=== PATIENT | male | born 1950 | race Caucasian/White ===

== ENCOUNTER 2021-10-24 08:15 | Outpatient (CLI) | payer MEDICARE, SELFPAY ==
[2021-10-24 18:43] LABS: Basophils Percent Auto 0.5 % (0.2-1.2); Eosinophils Absolute Auto 0.1 K/mm3 (0-0.3); Eosinophils Percent Auto 1.3 % (0-4.4); Hematocrit 43.3 % (42.0-52.0); Hemoglobin 13.9 g/dL (14.0-18.0); Immature Granulocyte Absolute 0.02 K/mm3 (0.00-0.031); Immature Granulocyte Percent A 0.5 % (0-0.5); Lymphocytes Absolute Auto 0.93 K/mm3 (0.9-3.2); Mean Corpuscular HGB Conc 32.1 g/dl (32-36); Mean Corpuscular Hemoglobin 31.7 pg (26-34); Mean Corpuscular Volume 98.9 fl (80-100); Mean Platelet Volume 10.5 fl (7.4-10.4); Monocytes Absolute Auto 0.5 K/mm3 (0.1-0.6); Monocytes Percent Auto 13.4 % (2.6-8.5); Neutrophils Absolute Auto 2.3 K/mm3 (1.3-6.7); Neutrophils Percent Auto 60.3 % (45.5-73.1); Platelet Count Result 181 k/mm3 (150-375); Red Blood Count 4.38 M/mm3 (4.6-6.20); Red Cell Distribution Width 13.2 % (11.5-14.5); White Blood Count 3.9 K/mm3 (4.5-10.0)
[2021-10-24 18:51] LABS: Alanine Aminotransferase 19 U/L (6-50); Albumin Level 4.5 g/dL (3.5-5.1); Alkaline Phosphatase 45 U/L (38-126); Anion Gap 7 mmol/L (8-16); Aspartate Amino Transferase 34 U/L (17-59); Bilirubin,Total 0.9 mg/dL (0.2-1.3); Blood Urea Nitrogen 20 mg/dL (9-20); Calcium 9.3 mg/dL (8.4-10.2); Carbon Dioxide 28 mmol/L (22-30); Chloride 104 mmol/L (98-107); Cholesterol 214 mg/dL (0-200); Estimated Glomerular Filt Rate > 60; Glucose 93 mg/dL (65-110); HDL Direct 97 mg/dL; LDL Cholesterol Direct 83 mg/dL; Potassium 4.8 mmol/L (3.4-5.0); Sodium 139 mmol/L (137-145); Triglycerides 37 mg/dL (<150)
[2021-10-24 19:09] LABS: Prostate Specific Antigen 2.3 ng/mL (< OR = 4.0)
== END 2021-10-24 08:16 | disposition home or self-care (01) ==
LOC: ANHGOSHLAB 08:23
PROVIDERS: PCP Family Medicine; Visit Provider Physician Assistant
DX: Z12.5 Encounter for screening for malignant neoplasm of prostate (principal); I10 Essential (primary) hypertension; E78.49 Other hyperlipidemia
CPT/HCPCS: 36415; 80053; 80061; 84153; 84443; 85025; G0103

== ENCOUNTER → 2021-12-05 10:48 | Outpatient (CLI) | payer MEDICARE, SELFPAY ==
--- NOTE | ~2021-12-05 | XR_ITS ---
XR knee LT min 4V 12/05/2021 10:59 Indication: Left knee pain Procedure: 4 views left knee Comparison: No prior studies for comparison. Findings: There is mild tricompartment osteoarthritis of the left knee. No fracture or traumatic alina lignment. No significant joint effusion. No foreign bodies. Impression: 1: Mild osteoarthritis of the left knee. Reviewed, dictated and finalized at location B. Impression: 1: Mild osteoarthritis of the left knee.
== END ==
PROVIDERS: PCP Physician Assistant; Visit Provider Physician Assistant
DX: M25.562 Pain in left knee (principal); M16.11 Unilateral primary osteoarthritis, right hip
CPT/HCPCS: 73564

== ENCOUNTER 2022-09-24 12:06 | Emergency (ER) | payer MEDICARE, SELFPAY ==
--- NOTE | ~2022-09-24 | XR_ITS ---
XR shoulder RT min 2V DATE: 09/24/2022 12:53 INDICATION: Right shoulder pain TECHNIQUE: 4 views COMPARISON: None FINDINGS: There is osteopenia. Diffuse idiopathic skeletal hyperostosis of the thoracic spine. Moderate peridiscal spurring of the glenoid process of the scapula. There is mild spurring at the rig ht acromioclavicular joint. No fracture, dislocation, periosteal reaction or bone destruction or abnormal soft tissue calcificati on of the right shoulder. IMPRESSION: Osteoarthritic changes Diffuse idiopathic skeletal hyperostosis of the thoracic spine Reviewed, dictated and finalized at location L.
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
[2022-09-24 12:19] VITALS: BP 122/86; PULSE 65; RESP 16; TEMP 36.4; O2SAT 98
[2022-09-24] MEDS: TETANUS,DIPHTHERIA,AC PERTUSSIS ADULT (0.5 ML) BOOSTRIX IM (12:33)
== END 2022-09-24 13:38 | disposition home or self-care (01) ==
PROVIDERS: Emergency Provider Nurse Practitioner; PCP Family Medicine
DX: S50.311A Abrasion of right elbow, initial encounter (principal); S80.211A Abrasion, right knee, initial encounter; V17.4XXA Pedal cycle driver injured in collision with fixed or stationary object in traffic accident, initial encounter; Y93.55 Activity, bike riding; S70.01XA Contusion of right hip, initial encounter; S50.01XA Contusion of right elbow, initial encounter; S40.011A Contusion of right shoulder, initial encounter; Z23 Encounter for immunization; N40.0 Benign prostatic hyperplasia without lower urinary tract symptoms; E78.49 Other hyperlipidemia; I10 Essential (primary) hypertension; G47.33 Obstructive sleep apnea (adult) (pediatric)
CPT/HCPCS: 73030; 73080; 73502; 90471; 90715; 99214; G0463

== ENCOUNTER 2022-11-05 08:10 | Outpatient (CLI) | payer MEDICARE, SELFPAY ==
[2022-11-05 11:16] LABS: Anion Gap 6 mmol/L (8-16); Blood Urea Nitrogen 17 mg/dL (9-20); Calcium 9.1 mg/dL (8.4-10.2); Carbon Dioxide 31 mmol/L (22-30); Chloride 104 mmol/L (98-107); Cholesterol 211 mg/dL (0-200); Estimated Glomerular Filt Rate > 60; Glucose 86 mg/dL (65-110); HDL Direct 90 mg/dL; Potassium 4.9 mmol/L (3.4-5.0); Sodium 141 mmol/L (137-145); Triglycerides 64 mg/dL (<150)
[2022-11-05 11:17] LABS: Basophils Percent Auto 0.6 % (0.2-1.2); Eosinophils Absolute Auto 0.1 K/mm3 (0-0.3); Eosinophils Percent Auto 2.1 % (0-4.4); Hematocrit 42.1 % (42.0-52.0); Hemoglobin 13.8 g/dL (14.0-18.0); Immature Granulocyte Absolute 0.01 K/mm3 (0.00-0.031); Immature Granulocyte Percent A 0.3 % (0-0.5); Lymphocytes Absolute Auto 1.03 K/mm3 (0.9-3.2); Lymphocytes Percent Auto 30.9 % (18.3-44.2); Mean Corpuscular HGB Conc 32.8 g/dl (32-36); Mean Corpuscular Hemoglobin 32.7 pg (26-34); Mean Corpuscular Volume 99.8 fl (80-100); Mean Platelet Volume 10.2 fl (7.4-10.4); Monocytes Absolute Auto 0.5 K/mm3 (0.1-0.6); Monocytes Percent Auto 14.7 % (2.6-8.5); Neutrophils Absolute Auto 1.7 K/mm3 (1.3-6.7); Neutrophils Percent Auto 51.4 % (45.5-73.1); Platelet Count Result 201 k/mm3 (150-375); Red Blood Count 4.22 M/mm3 (4.6-6.20); Red Cell Distribution Width 13.4 % (11.5-14.5); White Blood Count 3.3 K/mm3 (4.5-10.0)
[2022-11-05 11:28] LABS: LDL Cholesterol Direct 91 mg/dL
[2022-11-05 11:46] LABS: Prostate Specific Antigen 2.5 ng/mL (< OR = 4.0)
== END 2022-11-05 08:11 | disposition home or self-care (01) ==
PROVIDERS: PCP Family Medicine; Visit Provider Nurse Practitioner Family
DX: E78.49 Other hyperlipidemia (principal); I10 Essential (primary) hypertension; M48.10 Ankylosing hyperostosis [Forestier], site unspecified; N40.0 Benign prostatic hyperplasia without lower urinary tract symptoms; Z12.5 Encounter for screening for malignant neoplasm of prostate
CPT/HCPCS: 36415; 80048; 80061; 84153; 84443; 85025; G0103

== ENCOUNTER 2023-04-21 12:49 | Outpatient (CLI) | payer MEDICARE, SELFPAY | END 2023-04-21 12:50 | disposition home or self-care (01) | LOC: ANHAUDASC 12:51 | PROVIDERS: PCP Family Medicine; Visit Provider Nurse Practitioner Family | DX: H90.3 Sensorineural hearing loss, bilateral (principal) | CPT/HCPCS: 92557; 92567 ==

== ENCOUNTER 2023-11-18 07:54 | Outpatient (CLI) | payer MEDICARE, SELFPAY ==
[2023-11-18 18:47] LABS: Basophils Percent Auto 0.5 % (0.2-1.2); Eosinophils Absolute Auto 0.1 K/mm3 (0-0.3); Hemoglobin 13.7 g/dL (14.0-18.0); Immature Granulocyte Absolute 0.02 K/mm3 (0.00-0.031); Immature Granulocyte Percent A 0.5 % (0-0.5); Lymphocytes Absolute Auto 1.22 K/mm3 (0.9-3.2); Lymphocytes Percent Auto 30.8 % (18.3-44.2); Mean Corpuscular HGB Conc 31.9 g/dl (32-36); Mean Corpuscular Hemoglobin 30.8 pg (26-34); Mean Corpuscular Volume 96.6 fl (80-100); Monocytes Absolute Auto 0.5 K/mm3 (0.1-0.6); Monocytes Percent Auto 13.1 % (2.6-8.5); Neutrophils Absolute Auto 2.1 K/mm3 (1.3-6.7); Neutrophils Percent Auto 52.1 % (45.5-73.1); Platelet Count Result 212 k/mm3 (150-375); Red Blood Count 4.45 M/mm3 (4.6-6.20); Red Cell Distribution Width 13.7 % (11.5-14.5)
[2023-11-18 19:11] LABS: Alanine Aminotransferase 22 U/L (6-50); Albumin Level 4.3 g/dL (3.5-5.1); Alkaline Phosphatase 53 U/L (38-126); Anion Gap 9 mmol/L (4-12); Aspartate Amino Transferase 49 U/L (17-59); Bilirubin,Total 1.4 mg/dL (0.2-1.3); Blood Urea Nitrogen 20 mg/dL (9-20); Carbon Dioxide 28 mmol/L (22-30); Chloride 103 mmol/L (98-107); Cholesterol 143 mg/dL (0-200); Estimated Glomerular Filt Rate > 60; Glucose 79 mg/dL (65-110); HDL Direct 78 mg/dL; Potassium 4.3 mmol/L (3.4-5.0); Sodium 140 mmol/L (137-145); Triglycerides 39 mg/dL (<150)
[2023-11-18 19:21] LABS: LDL Cholesterol Direct 46 mg/dL
[2023-11-18 19:38] LABS: Prostate Specific Antigen 2.3 ng/mL (< OR = 4.0)
[2023-11-18 21:39] LABS: Free T4 Free Thyroxine Reflex 1.02 ng/dL (0.78-2.19)
[2023-11-18 22:24] LABS: Total Triiodothyronine (T3) 1.24 NG/ML (0.97-1.69)
== END 2023-11-18 07:55 | disposition home or self-care (01) ==
LOC: ANHGOSHLAB 07:56
PROVIDERS: PCP Family Medicine; Visit Provider Nurse Practitioner Family
DX: N40.0 Benign prostatic hyperplasia without lower urinary tract symptoms (principal); I10 Essential (primary) hypertension; E78.49 Other hyperlipidemia; M48.10 Ankylosing hyperostosis [Forestier], site unspecified; Z12.5 Encounter for screening for malignant neoplasm of prostate
CPT/HCPCS: 36415; 80053; 80061; 84153; 84439; 84443; 84480; 85025; G0103

== ENCOUNTER 2024-10-27 00:20 | Day surgery (SDC) | payer MEDICARE, SELFPAY ==
[2024-10-13 10:12] VITALS: BMI 32.1
[2024-10-27 09:04] VITALS: BP 129/90; PULSE 71; RESP 18; TEMP 36.6; O2SAT 97; BMI 31.8
[2024-10-27] MEDS: LACTATED RINGERS 1,000 ML 150 ML IV CONT (09:11)
--- NOTE | 2024-10-27 09:23 | WPDANESEPPF ---
Anes - Initial Pre Proc Eval Procedure: Operation Date: 10/27/24 10:30 Proposed Procedures p Colonoscopy - Lorenzo Roberson MD Date/Time: 10/27/24 09:23 Surgeon: Lorenzo Roberson MD Pre Op Diagnosis: Other fecal abnormalities Patient Data Age: 73 Gender: M Height: 1.8 m Weight: 103.6 kg Last Vital Signs Temp 36.6 C 10/27/24 09:04 Pulse 71 10/27/24 09:04 Resp 18 10/27/24 09:04 BP 129/90 10/27/24 09:04 Pulse Ox 97 10/27/24 09:04 O2 Del Method Room Air 10/27/24 09:04 Allergies Allergy/AdvReac Type Severity Reaction Status Date / Time No Known Allergies Allergy Verified 10/27/24 09:02 Home Medications ?Medication ?Instructions ?Recorded ?Confirmed ?Type multivitamin 1 tablet PO DAILY 12/31/21 10/27/24 History fluticasone propionate 50 1 spray intranasal DAILY #16 grams 01/19/22 10/27/24 Rx mcg/actuation nasal spray,suspension fluticasone propionate 50 1 spray intranasal DAILY 08/23/23 10/27/24 History mcg/actuation nasal spray,suspension (Flonase Allergy Relief) ibuprofen 200 mg capsule 200 mg PO Q6H PRN pain 08/23/23 10/13/24 History loratadine 5 mg/5 mL oral solution 5 ml PO ONCE 08/23/23 10/27/24 History (Children's Claritin) atorvastatin 10 mg tablet 10 mg PO DAILY #30 tabs 05/16/24 10/27/24 Rx Patient hx anesthesia problems: none Family hx anesthesia problems: none Results Review: All pre-operative results and documents have been reviewed as part of the pre-operative evaluation. [facility] Past Medical History Medical History Hearing loss Surgical aftercare, genitourinary system (11/2019) s/p Urolift procedure HTN (hypertension), benign Familial combined hyperlipidemia JUNE on CPAP BPH (benign prostatic hyperplasia) Family History Family History Father Cancer Mother Hypertension Heart problem Thyroid disorder Social History Social History Social History: Caffeine-Coffee Smoking status: Never smoker Tobacco type: pipe Alcohol intake: current Alcohol use details: occasionally Substance use: never Living arrangements: with family Occupation/Education: retired Gender identity (if verbalized by the patient): Male Anes - Eval Final PreProcedure Day of Procedure 10/27/24 09:23 Patient weight: obese Heart: regular rate and rhythm Lungs: clear to auscultation Airway: Mallampati scale class II Neurological: alert and oriented Last oral intake: >/= 8 hours ASA classification: III Emergent: no Anesthetic plan: proceed Anesthesia type and monitoring: general GIVS and standard monitoring Results Review: All pre-operative results and documents have been reviewed as part of the pre-operative evaluation. Informed Consent: The patient's anesthetic plan and its attendant risks and benefits were discussed with the patient/family/POA. Questions were solicited and answers provided to the satisfaction of the patient/family/POA.
--- NOTE | 2024-10-27 10:03 | PM.HPGS ---
History of Present Illness History of Present Illness Consent: Risks, benefits, and alternatives have been discussed and questions answered. Patient agrees to proceed with procedure. Chief complaint: Other fecal abnormalities Narrative: Dayday Novak is a 73 year old male with cologuard +, had colonoscopy more than 7 years ago Review of Systems Review of Systems: All systems reviewed & are unremarkable except as noted in HPI and below PMFSH Past Medical History Medical History Hearing loss Surgical aftercare, genitourinary system (11/2019) s/p Urolift procedure HTN (hypertension), benign Familial combined hyperlipidemia JUNE on CPAP BPH (benign prostatic hyperplasia) Family History Family History Father Cancer Mother Hypertension Heart problem Thyroid disorder Social History Social History Social History: Caffeine-Coffee Smoking status: Never smoker Tobacco type: pipe Alcohol intake: current Alcohol use details: occasionally Substance use: never Living arrangements: with family Occupation/Education: retired Gender identity (if verbalized by the patient): Male Meds Home Medications and Allergies Home Medications ?Medication ?Instructions ?Recorded ?Confirmed ?Type multivitamin 1 tablet PO DAILY 12/31/21 10/27/24 History fluticasone propionate 50 1 spray intranasal DAILY #16 grams 01/19/22 10/27/24 Rx mcg/actuation nasal spray,suspension fluticasone propionate 50 1 spray intranasal DAILY 08/23/23 10/27/24 History mcg/actuation nasal spray,suspension (Flonase Allergy Relief) ibuprofen 200 mg capsule 200 mg PO Q6H PRN pain 08/23/23 10/13/24 History loratadine 5 mg/5 mL oral solution 5 ml PO ONCE 08/23/23 10/27/24 History (Children's Claritin) atorvastatin 10 mg tablet 10 mg PO DAILY #30 tabs 05/16/24 10/27/24 Rx Allergies Allergy/AdvReac Type Severity Reaction Status Date / Time No Known Allergies Allergy Verified 10/27/24 09:02 Vital Signs Vital Signs - 24 hr 10/27/24 09:04 Temperature 97.8 F Pulse Rate 71 Respiratory Rate 18 Blood Pressure 129/90 Pulse Oximetry 97 Oxygen Delivery Room Air Exam Const: General: comfortable and no acute distress HENMT: Face/Nose/Sinus: Normal nares present Eyes: General: appearance normal, both eyes and all related structures Neck: Neck: no JVD Resp: Auscultation: clear to auscultation bilaterally Cardio: Rate: regular rate Rhythm: regular rhythm GI: Inspection: non-distended GI Palp: Yes Soft to palpation Skin: General skin exam: normal color Neuro: Speech: normal speech Extrem: General: normal to inspection Psych: Mental Status: mental status grossly normal Assessment and Plan Assessment and plan (1) Positive FIT (fecal immunochemical test): Code(s): R19.5 - Other fecal abnormalities Status: Acute Assessment and Plan: colonoscopy
[2024-10-27 10:17] VITALS: BP 111/64; PULSE 70; RESP 20; O2SAT 95
--- NOTE | 2024-10-27 10:18 | S_PTH ---
PATIENT: Dayday Novak LOC: [facility]#:[id number] AGE/SX: 73/M ROOM: RE10/27/[address]: Lorenzo Roberson MD : 1950 BED: DIS: 10/27/2024 SPEC #: [id number] RECD: 10/27/24 11:14 STATUS: EMILY REQ #: [id number] STEVE: 10/27/24 10:[address]: Lorenzo Roberson DEPT: [facility] Surgical RECD BY: Liz Cruz ENTERED: 10/27/24 11:14 SP TYPE: Surgical OTHR DR: Dalton Black MD Tissues: A - Colon Polypectomy Procedures: Hematoxylin and Eosin Stain Gross and Microscopic Level 4
[2024-10-27 10:27] VITALS: BP 114/81; PULSE 72; RESP 16; O2SAT 97
[2024-10-27 10:37] VITALS: BP 132/77; PULSE 64; RESP 20; O2SAT 100
== END 2024-10-27 10:44 | disposition home or self-care (01) ==
PROVIDERS: PCP Family Medicine; Referring Provider Nurse Practitioner Family; Visit Provider Internal Medicine Gastroenterology
PROC: 0DJD8ZZ Inspection of Lower Intestinal Tract, Via Natural or Artificial Opening Endoscopic (ICD-10-PCS; CPT 45378; principal; 2024-10-27 10:30)
DX: R19.5 Other fecal abnormalities (principal); D12.2 Benign neoplasm of ascending colon; K64.8 Other hemorrhoids; K57.30 Diverticulosis of large intestine without perforation or abscess without bleeding; I10 Essential (primary) hypertension; E78.49 Other hyperlipidemia; N40.0 Benign prostatic hyperplasia without lower urinary tract symptoms; G47.33 Obstructive sleep apnea (adult) (pediatric); E66.9 Obesity, unspecified; Z68.31 Body mass index [BMI] 31.0-31.9, adult; Z79.1 Long term (current) use of non-steroidal anti-inflammatories (NSAID); Z99.89 Dependence on other enabling machines and devices; Z80.9 Family history of malignant neoplasm, unspecified; Z82.49 Family history of ischemic heart disease and other diseases of the circulatory system
CPT/HCPCS: 45385; 88305; J2704; J7120

== ENCOUNTER 2024-11-16 08:11 | Outpatient (CLI) | payer MEDICARE, SELFPAY ==
[2024-11-16 19:21] LABS: Hematocrit 43.2 % (42.0-52.0); Hemoglobin 13.7 g/dL (14.0-18.0); Immature Granulocyte Percent A 0.2 % (0-0.5); Lymphocytes Absolute Auto 1.08 K/mm3 (0.9-3.2); Mean Corpuscular HGB Conc 31.7 g/dl (32-36); Mean Corpuscular Hemoglobin 30.9 pg (26-34); Mean Corpuscular Volume 97.3 fl (80-100); Nucleated Red Blood Cells Absolute Auto 0.000 K/mm3 (0.0-0.012); Nucleated Red Blood Cells Perc 0.0 % (0.0-0.2); Platelet Count Result 188 k/mm3 (150-375); Red Blood Count 4.44 M/mm3 (4.6-6.20); White Blood Count 4.1 K/mm3 (4.5-10.0)
[2024-11-16 19:50] LABS: Alanine Aminotransferase 22 U/L (6-50); Albumin Level 4.3 g/dL (3.5-5.1); Alkaline Phosphatase 61 U/L (38-126); Anion Gap 8 mmol/L (4-12); Aspartate Amino Transferase 39 U/L (17-59); Bilirubin,Total 2.1 mg/dL (0.2-1.3); Blood Urea Nitrogen 19 mg/dL (9-20); Calcium 8.9 mg/dL (8.4-10.2); Carbon Dioxide 26 mmol/L (22-30); Chloride 103 mmol/L (98-107); Cholesterol 170 mg/dL (0-200); Estimated Glomerular Filt Rate > 60; Glucose 77 mg/dL (65-110); HDL Direct 86 mg/dL; Potassium 3.9 mmol/L (3.4-5.0); Sodium 137 mmol/L (137-145); Total Protein 7.3 g/dL (6.3-8.2); Triglycerides 51 mg/dL (<150)
[2024-11-16 20:20] LABS: Prostate Specific Antigen 2.2 ng/mL (< OR = 4.0)
[2024-11-16 21:11] LABS: Thyroid Stimulating Hormone 5.550 uIU/mL (0.465-4.680)
== END 2024-11-16 08:12 | disposition home or self-care (01) ==
LOC: ANHGOSHLAB 08:11
PROVIDERS: PCP Family Medicine; Visit Provider Nurse Practitioner Family
DX: Z12.5 Encounter for screening for malignant neoplasm of prostate (principal); I10 Essential (primary) hypertension; E78.49 Other hyperlipidemia; N40.0 Benign prostatic hyperplasia without lower urinary tract symptoms
CPT/HCPCS: 36415; 80053; 80061; 84153; 84443; 85025; G0103